=== PATIENT | female | born 1985 | race African-American/Black ===

== ENCOUNTER 2021-05-31 05:50 | Inpatient (IN) | payer BC ==
[2021-05-31 07:34] VITALS: BMI 40.1
[2021-05-31] MEDS ORDERED: ePHEDrine SULFATE 50 MG/1 ML AMPULE ONE ×2 (07:45)
[2021-05-31] MEDS ORDERED: SUCCINYLCHOLINE CHLORIDE 200 MG/10 ML SYRINGE ONE (07:47)
[2021-05-31] MEDS ORDERED: PROPOFOL 20 ML ONE ×2 (07:47)
[2021-05-31] MEDS ORDERED: ELECTROLYTE-148 SOLN 500 ML IV ONE (08:06)
[2021-05-31] MEDS ORDERED: ELECTROLYTE-148 SOLN 1,000 ML IV SCH (08:15)
[2021-05-31] MEDS ORDERED: CITRIC ACID/SODIUM CITRATE 30 ML UNIT-DOSE CUP PO ONE (08:15)
[2021-05-31] MEDS ORDERED: METHYLERGONOVINE MALEATE 0.2 MG/1 ML AMP IM PRN (10:37)
[2021-05-31] MEDS ORDERED: IBUPROFEN 800 MG/8 ML IJ IVPB PRN (10:37)
[2021-05-31] MEDS ORDERED: oxyCODONE HCL 5 MG TABLET PO PRN ×2 (10:37)
[2021-05-31] MEDS ORDERED: OXYTOCIN 20 UNITS in 0.9% NS 20 UNIT/1,000 ML INFUS.BAG IV SCH (10:45)
[2021-05-31] MEDS ORDERED: OXYTOCIN 20 UNITS in 0.9% NS 20 UNIT/1,000 ML INFUS.BAG IV ONE (10:56)
[2021-05-31] MEDS ORDERED: ONDANSETRON 4 MG/2 ML VIAL IVPUSH PRN (11:04)
[2021-06-01] MEDS ORDERED: DIPHTH,PERTUSS(ACELL),TET 0.5 ML DISP.SYRIN IM ONE (10:00)
[2021-06-01 10:01] LABS: BASO % 0.1 % (0-2.0); EOS % 1.4 % (0-4.5); HEMATOCRIT 27.6 % (32.4-45.2); HEMOGLOBIN 9.1 GM/dL (10.7-15.3); LYMPH % 15.8 % (8-40); MCH 28.3 pg (25.7-33.7); MCHC 33.1 g/dl (32.0-36.0); MEAN CELL VOLUME 85.5 fl (80-96); MEAN PLT VOLUME 9.2 fl (7.5-11.1); NEUT % 76.7 % (42.8-82.8); PLATELET COUNT 177 10^3/uL (134-434); RBC 3.23 M/mm3 (3.60-5.2); RDW 13.9 % (11.6-15.6); WHITE BLOOD COUNT 10.9 K/mm3 (4.0-10.0)
[2021-06-01] MEDS: PRENATAL VITAMINS W/ FOLIC ACID TABLET (FP) PO SCH (10:21)
[2021-06-01] MEDS ORDERED: BISACODYL 10 MG SUPP.RECT RC PRN (10:37)
[2021-06-01 10:41] LABS: ANISOCYTOSIS 0; MACROCYTOSIS 0; PLATELET ESTIMATE NORMAL
[2021-06-01] MEDS: IBUPROFEN 600 MG TABLET (FP) PO PRN ×2 (14:45→22:37)
[2021-06-01] MEDS: ACETAMINOPHEN 325 MG TABLET (FP) PO PRN ×2 (14:45→22:37)
[2021-06-01] MEDS: SIMETHICONE 80 MG TAB.CHEW (FP) PO PRN (14:49)
[2021-06-01] MEDS: SENNOSIDES/DOCUSATE COMBO (SENNA PLUS) TABLET (UD) PO PRN (22:38)
[2021-06-02] MEDS: PRENATAL VITAMINS W/ FOLIC ACID TABLET (FP) PO SCH (09:50)
[2021-06-02] MEDS: IBUPROFEN 600 MG TABLET (FP) PO PRN ×2 (12:45→21:27)
[2021-06-02] MEDS: ACETAMINOPHEN 325 MG TABLET (FP) PO PRN ×2 (12:45→21:27)
[2021-06-02] MEDS: SIMETHICONE 80 MG TAB.CHEW (FP) PO PRN (12:45)
[2021-06-02] MEDS: SENNOSIDES/DOCUSATE COMBO (SENNA PLUS) TABLET (UD) PO PRN (21:27)
[2021-06-03 09:30] VITALS: BP 120/69; PULSE 76; TEMP 97.5
[2021-06-03] MEDS: PRENATAL VITAMINS W/ FOLIC ACID TABLET (FP) PO SCH (10:31)
== END 2021-06-03 12:25 | disposition home or self-care (01) | DRG 786 ==
LOC: JLDR 05:50 → J3W 11:30
PROVIDERS: ADMIT Obstetrics & Gynecology; ATTEND Obstetrics & Gynecology
PROC: 10D00Z1 Extraction of Products of Conception, Low, Open Approach (ICD-10-PCS; principal; 2021-05-31)
DX: O34.211 Maternal care for low transverse scar from previous cesarean delivery (principal); O44.53 Low lying placenta with hemorrhage, third trimester; O99.214 Obesity complicating childbirth; E66.01 Morbid (severe) obesity due to excess calories; Z3A.38 38 weeks gestation of pregnancy; Z37.0 Single live birth
CPT/HCPCS: 36415; 85025; 86850; 86900; 86901; 86922; 88307-TC; 90715